=== PATIENT | female | born 1990 | race Caucasian/White ===

== ENCOUNTER 2020-07-11 23:57 | Emergency (ER) | payer OTHER ==
[~2020-07-11] VITALS: Ht 162.6 cm; Wt 93.4 kg
[2020-07-12 00:08] VITALS: Ht 162.6 cm; Wt 93.4 kg
[2020-07-12 02:01] LABS: BASOPHIL % 1.6 % (0-2); PLATELET COUNT 210 x10^3mcL (130-400); RED CELL DISTRIBUTION WIDTH 13.3 % (11.5-14.5)
[2020-07-12 02:16] LABS: CALCIUM 8.5 mg/dL (8.5-10.1); CARBON DIOXIDE 26.2 mmol/L (21-32); CHLORIDE SERUM 101 mmol/L (98-107); CREATININE SERUM 0.9 mg/dL (0.6-1.0); GFR1 > 60 mL/min; GLUCOSE SERUM 118 mg/dL (74-106); POTASSIUM SERUM 3.9 mmol/L (3.5-5.1); SODIUM SERUM 136 mmol/L (136-145)
[2020-07-12 02:21] LABS: ALBUMIN 3.6 g/dL (3.4-5.0); ALKALINE PHOSPHATASE 80 U/L (46-116); ALT/SGPT 169 U/L (14-59); AST/SGOT 98 U/L (15-37); BILIRUBIN TOTAL 0.34 mg/dL (0.20-1.00); TOTAL PROTEIN, SERUM 6.9 g/dL (6.4-8.2)
[2020-07-12 03:04] VITALS: BP 114/77
== END 2020-07-12 03:04 | disposition home or self-care (01) ==
LOC: ED 23:57
PROVIDERS: Specialist
DX: K64.9 Unspecified hemorrhoids (principal); R79.89 Other specified abnormal findings of blood chemistry